=== PATIENT | female | born 1955 | race Caucasian/White ===

== ENCOUNTER 2019-02-11 08:59 | Day surgery (SDC) | payer OTHER ==
[2019-02-11] MEDS ORDERED: PROPOFOL 20 ML (10:21)
[2019-02-11] MEDS ORDERED: ONDANSETRON 4 MG INJ IV (10:30)
== END 2019-02-11 12:01 | disposition home or self-care (01) ==
LOC: GIL 08:59
DX: Z12.11 Encounter for screening for malignant neoplasm of colon (principal); K64.8 Other hemorrhoids; K57.30 Diverticulosis of large intestine without perforation or abscess without bleeding; E03.9 Hypothyroidism, unspecified
CPT/HCPCS: 45378